=== PATIENT | female | born 1985 | race Caucasian/White ===

== ENCOUNTER 2016-05-30 14:22 | Inpatient (IN) | payer BC ==
[~2016-05-30] VITALS: Ht 167.6 cm; Wt 68.0 kg
[2016-05-30 14:22] VITALS: BP 142/83; PULSE 100; RESP 18; TEMP 97.2; O2SAT 98
[2016-05-30 14:57] LABS: BASOPHILS % (AUTO) 0.1 % (0.0-2.0); HEMATOCRIT 50.5 % (36-48); HEMOGLOBIN 16.5 g/dL (12.0-16.0); LYMPHOCYTES # (AUTO) 1.4 K/uL (1.0-5.5); LYMPHOCYTES % (AUTO) 8.5 % (20.5-51.5); MEAN CORPUSCULAR HEMOGLOBIN 31 pg (27-31); MEAN CORPUSCULAR HGB CONC 33 % (32-36); MEAN CORPUSCULAR VOLUME 96 fL (79.0-98.0); MONOCYTES # (AUTO) 0.6 K/uL (0.0-1.0); MONOCYTES % (AUTO) 3.9 % (1.7-9.3); NEUTROPHILS # (AUTO) 14.3 K/uL (1.8-7.7); NEUTROPHILS % (AUTO) 87.5 % (40.0-70.0); PLATELET COUNT (AUTO) 356 K/uL (130-430); RED BLOOD CELL COUNT(AUTO) 5.24 MIL/uL (4.2-6.2); RED CELL DISTRIBUTION WIDTH 11.9 % (9.0-15.0); WHITE BLOOD COUNT (AUTO) 16.3 K/uL (4.8-10.8)
[2016-05-30] MEDS ORDERED: NACL 0.9% 1,000 ML IV ONE (15:00)
[2016-05-30] MEDS ORDERED: ONDANSETRON HCL 4 MG/2 ML VIAL IVP ONE ×2 (15:00→16:00)
[2016-05-30 15:15] LABS: INR 1.1 (0.8-1.2); PROTHROMBIN TIME 11.8 SECS (9.5-12.5)
[2016-05-30] MEDS ORDERED: VANCOMYCIN HCL 1,000 MG in D5W 250 ML IV ONE (15:15)
[2016-05-30] MEDS ORDERED: PIPERACILLIN/TAZO 3.38 GM in D5W 50 ML IV ONE (15:15)
[2016-05-30 15:19] LABS: CALCIUM 9.3 mg/dL (8.4-11.0); CREATININE 1.1 mg/dL (0.55-1.30); POTASSIUM 4.2 mmol/L (3.5-5.1)
[2016-05-30 15:30] LABS: ALBUMIN 4.1 g/dL (3.4-4.8); TOTAL BILIRUBIN 1.5 mg/dL (0.0-1.0); TOTAL PROTEIN, SERUM 8.1 g/dL (6.4-8.3)
[2016-05-30] MEDS ORDERED: VANCOMYCIN HCL 1000 MG/VIAL IV ONE (15:31)
[2016-05-30] MEDS ORDERED: PIPERACILLIN/TAZOBACTAM 3.375 GM/VIAL (ZOSYN) IV ONE (15:32)
[2016-05-30] MEDS ORDERED: ACETAMINOPHEN 325 MG TABLET PO PRN (15:45)
[2016-05-30] MEDS ORDERED: MORPHINE 4 MG/ML INJ. SYRINGE IVP ONE (16:00)
[2016-05-30 17:24] VITALS: BP 117/77; PULSE 80; RESP 18; TEMP 98.9; O2SAT 97
[2016-05-30] MEDS: NACL 0.9% 1,000 ML IV SCH (18:07)
[2016-05-30 20:08] VITALS: BP 120/73; PULSE 85; RESP 16; TEMP 99; O2SAT 96
[2016-05-30] MEDS: LACTOBACILLUS RHAMNOSUS GG 1 CAP CAPSULE PO SCH (22:04)
[2016-05-30] MEDS: HYDROcodone/ACETAMIN 10-325 MG TAB PO PRN (22:05)
[2016-05-30] MEDS: ONDANSETRON HCL 4 MG/2 ML VIAL IVP PRN (22:07)
[2016-05-31] VITALS: BP 117/61; PULSE 74; RESP 18; TEMP 98.2; O2SAT 96
[2016-05-31] MEDS: PIPERACILLIN/TAZO 2.25G/DEX-IS 50 ML IV SCH ×5 (00:11→23:12)
[2016-05-31] MEDS: NACL 0.9% 1,000 ML IV SCH ×4 (00:14→22:08)
[2016-05-31 04:33] VITALS: BP 122/64; PULSE 76; RESP 18; TEMP 98.6; O2SAT 98
[2016-05-31 07:34] LABS: BASOPHILS % (AUTO) 0.2 % (0.0-2.0); EOSINOPHILS % (AUTO) 0.3 % (0.0-4.0); HEMATOCRIT 39.8 % (36-48); HEMOGLOBIN 13.8 g/dL (12.0-16.0); LYMPHOCYTES # (AUTO) 1.4 K/uL (1.0-5.5); MEAN CORPUSCULAR HEMOGLOBIN 33 pg (27-31); MEAN CORPUSCULAR HGB CONC 35 % (32-36); MEAN CORPUSCULAR VOLUME 97 fL (79.0-98.0); MONOCYTES # (AUTO) 0.7 K/uL (0.0-1.0); MONOCYTES % (AUTO) 6.1 % (1.7-9.3); NEUTROPHILS # (AUTO) 9.5 K/uL (1.8-7.7); NEUTROPHILS % (AUTO) 81.4 % (40.0-70.0); PLATELET COUNT (AUTO) 237 K/uL (130-430); RED BLOOD CELL COUNT(AUTO) 4.12 MIL/uL (4.2-6.2); RED CELL DISTRIBUTION WIDTH 12.2 % (9.0-15.0); WHITE BLOOD COUNT (AUTO) 11.6 K/uL (4.8-10.8)
[2016-05-31 07:53] LABS: ALBUMIN 3.1 g/dL (3.4-4.8); CREATININE 0.79 mg/dL (0.55-1.30); POTASSIUM 3.5 mmol/L (3.5-5.1); TOTAL BILIRUBIN 1.1 mg/dL (0.0-1.0); TOTAL PROTEIN, SERUM 6.3 g/dL (6.4-8.3)
[2016-05-31 08:32] VITALS: BP 119/64; PULSE 77; RESP 16; TEMP 97.9; O2SAT 94
[2016-05-31] MEDS: LACTOBACILLUS RHAMNOSUS GG 1 CAP CAPSULE PO SCH ×2 (09:00→22:08)
[2016-05-31 12:21] VITALS: BP 115/71; PULSE 75; RESP 16; TEMP 97.5; O2SAT 95
[2016-05-31 15:50] VITALS: BP 118/69; PULSE 95; RESP 18; TEMP 98.8; O2SAT 96
[2016-05-31] MEDS: ONDANSETRON HCL 4 MG/2 ML VIAL IVP PRN (18:06)
[2016-05-31] MEDS: HYDROmorphone 1 MG INJ. 1 MG/ML AMPUL IVP PRN ×2 (18:11→22:10)
[2016-05-31 20:21] VITALS: BP 115/66; PULSE 80; RESP 15; TEMP 99.4; O2SAT 96
[2016-06-01] MEDS: PIPERACILLIN/TAZO 2.25G/DEX-IS 50 ML IV SCH ×3 (05:45→17:34)
[2016-06-01 06:27] LABS: BILIRUBIN,URINE NEGATIVE (NEGATIVE); CLARITY/URINE SL CLOUDY (CLEAR); COLOR,URINE YELLOW (YELLOW); GLUCOSE,URINE NEGATIVE (NEGATIVE); KETONES,URINE 3+ (NEGATIVE); LEUKOCYTE ESTERASE ,URINE NEGATIVE (NEGATIVE); NITRITE, URINE NEGATIVE (NEGATIVE); PROTEIN URINE TRACE (NEGATIVE); UROBILINOGEN,URINE 0.2 (0.2-1.0)
[2016-06-01 06:40] LABS: BLOOD, URINE TRACE (NEGATIVE)
[2016-06-01 06:50] LABS: BACTERIA,URINE FEW /HPF (None Seen); MUCUS,URINE None Seen /LPF (None Seen); WBC,URINE 0-3 /HPF (0-3)
[2016-06-01 07:35] LABS: BASOPHILS % (AUTO) 0.4 % (0.0-2.0); EOSINOPHILS # (AUTO) 0.2 K/uL (0.0-0.4); EOSINOPHILS % (AUTO) 1.4 % (0.0-4.0); HEMATOCRIT 34.9 % (36-48); HEMOGLOBIN 11.9 g/dL (12.0-16.0); LYMPHOCYTES # (AUTO) 1.5 K/uL (1.0-5.5); LYMPHOCYTES % (AUTO) 13.6 % (20.5-51.5); MEAN CORPUSCULAR HEMOGLOBIN 33 pg (27-31); MEAN CORPUSCULAR HGB CONC 34 % (32-36); MEAN CORPUSCULAR VOLUME 97 fL (79.0-98.0); MONOCYTES # (AUTO) 0.7 K/uL (0.0-1.0); MONOCYTES % (AUTO) 6.6 % (1.7-9.3); NEUTROPHILS # (AUTO) 8.4 K/uL (1.8-7.7); PLATELET COUNT (AUTO) 187 K/uL (130-430); RED BLOOD CELL COUNT(AUTO) 3.59 MIL/uL (4.2-6.2); RED CELL DISTRIBUTION WIDTH 11.4 % (9.0-15.0); WHITE BLOOD COUNT (AUTO) 10.8 K/uL (4.8-10.8)
[2016-06-01 07:46] LABS: ALBUMIN 2.8 g/dL (3.4-4.8); CREATININE 0.72 mg/dL (0.55-1.30); POTASSIUM 3.6 mmol/L (3.5-5.1); TOTAL BILIRUBIN 0.9 mg/dL (0.0-1.0); TOTAL PROTEIN, SERUM 6.1 g/dL (6.4-8.3)
[2016-06-01 08:00] VITALS: BP 115/61; PULSE 98; RESP 15; TEMP 99.5; O2SAT 95
[2016-06-01] MEDS: NACL 0.9% 1,000 ML IV SCH ×2 (08:00→16:00)
[2016-06-01] MEDS: LACTOBACILLUS RHAMNOSUS GG 1 CAP CAPSULE PO SCH ×2 (08:41→21:43)
[2016-06-01] MEDS ORDERED: METOCLOPRAMIDE HCL 10 MG/2 ML VIAL IVP ONE (08:45)
[2016-06-01] MEDS ORDERED: fentaNYL CITRATE/PF 100 MCG/2 ML AMP IVP ONE (08:45)
[2016-06-01] MEDS ORDERED: BUPIVACAINE /EPINEPHRINE/PF 0.25% 30 ML VIAL INJ ONE (08:45)
[2016-06-01] MEDS ORDERED: SEVOFLURANE 15 MIN GAS INH ONE (08:45)
[2016-06-01] MEDS ORDERED: ROCURONIUM BROMIDE 10 MG/ML (ZEMURON) IV ONE (08:45)
[2016-06-01] MEDS ORDERED: LR 1,000 ML IV.SOLN IV ONE (08:45)
[2016-06-01] MEDS ORDERED: PROPOFOL 200MG/ 20ML VIAL (DIPRIVAN) IV ONE (08:45)
[2016-06-01] MEDS ORDERED: MIDAZOLAM HCL 5 MG/5 ML VIAL IVP ONE (08:45)
[2016-06-01] MEDS ORDERED: KETOROLAC TROMETHAMINE 30 MG VIAL IVP ONE (08:45)
[2016-06-01] MEDS ORDERED: NS 1000 ML BAG IV ONE (08:45)
[2016-06-01] MEDS ORDERED: fentaNYL CITRATE 250 MCG/5 ML AMP IV ONE (08:45)
[2016-06-01] MEDS ORDERED: DEXAMETHASONE SOD PHOSPHATE 4 MG/ML VIAL IVP ONE (08:45)
[2016-06-01] MEDS ORDERED: IOHEXOL 0 ML IV ONE (09:01)
[2016-06-01] MEDS ORDERED: LR 1,000 ML IV SCH (09:46)
[2016-06-01] MEDS ORDERED: HYDROmorphone 2 MG/ML VIAL IVP PRN ×2 (10:00)
[2016-06-01] MEDS ORDERED: HYDROmorphone 1 MG INJ. 1 MG/ML AMPUL IVP PRN (10:00)
[2016-06-01] MEDS ORDERED: MEPERIDINE HCL/PF 25 MG/ML DISP.SYRIN IVP PRN (10:00)
[2016-06-01 12:00] VITALS: BP 120/73; PULSE 95; RESP 16; TEMP 98; O2SAT 94
[2016-06-01] MEDS: HYDROcodone/ACETAMIN 10-325 MG TAB PO PRN (12:02)
[2016-06-01 16:00] VITALS: BP 128/69; PULSE 85; RESP 16; TEMP 97.5; O2SAT 97
[2016-06-01 16:11] VITALS: Ht 167.6 cm; Wt 68.0 kg
[2016-06-01 17:11] VITALS: BP 113/74; PULSE 82; RESP 16; TEMP 97.3; O2SAT 97
[2016-06-01 20:00] VITALS: BP 114/79; PULSE 71; RESP 16; TEMP 98.3; O2SAT 99
[2016-06-01 20:48] VITALS: BP 114/79; PULSE 71
[2016-06-02] MEDS: HYDROcodone/ACETAMIN 10-325 MG TAB PO PRN (00:12)
[2016-06-02] MEDS: PIPERACILLIN/TAZO 2.25G/DEX-IS 50 ML IV SCH ×2 (00:12→05:47)
[2016-06-02] MEDS: NACL 0.9% 1,000 ML IV SCH (00:15)
[2016-06-02 02:18] VITALS: BP 128/67; PULSE 66; RESP 16; TEMP 98; O2SAT 94
[2016-06-02 04:00] VITALS: BP 121/70; PULSE 66; RESP 18; TEMP 96.1; O2SAT 95
[2016-06-02 05:29] VITALS: BP 121/70; PULSE 66; RESP 18; TEMP 96.1; O2SAT 95
[2016-06-02 07:50] LABS: BASOPHILS % (AUTO) 0.1 % (0.0-2.0); EOSINOPHILS # (AUTO) 0.1 K/uL (0.0-0.4); EOSINOPHILS % (AUTO) 0.9 % (0.0-4.0); HEMATOCRIT 31.6 % (36-48); HEMOGLOBIN 10.7 g/dL (12.0-16.0); LYMPHOCYTES # (AUTO) 1.8 K/uL (1.0-5.5); LYMPHOCYTES % (AUTO) 19.6 % (20.5-51.5); MEAN CORPUSCULAR HEMOGLOBIN 33 pg (27-31); MEAN CORPUSCULAR HGB CONC 34 % (32-36); MEAN CORPUSCULAR VOLUME 96 fL (79.0-98.0); MONOCYTES # (AUTO) 0.7 K/uL (0.0-1.0); MONOCYTES % (AUTO) 7.4 % (1.7-9.3); NEUTROPHILS # (AUTO) 6.6 K/uL (1.8-7.7); PLATELET COUNT (AUTO) 191 K/uL (130-430); RED BLOOD CELL COUNT(AUTO) 3.29 MIL/uL (4.2-6.2); RED CELL DISTRIBUTION WIDTH 11.7 % (9.0-15.0); WHITE BLOOD COUNT (AUTO) 9.2 K/uL (4.8-10.8)
[2016-06-02] MEDS: LACTOBACILLUS RHAMNOSUS GG 1 CAP CAPSULE PO SCH (08:06)
[2016-06-02 08:10] VITALS: BP 119/75; PULSE 60; RESP 14; TEMP 97.4; O2SAT 68
[2016-06-02 08:22] LABS: ALBUMIN 2.5 g/dL (3.4-4.8); CALCIUM 8.4 mg/dL (8.4-11.0); CREATININE 0.64 mg/dL (0.55-1.30); POTASSIUM 3.8 mmol/L (3.5-5.1); TOTAL BILIRUBIN 0.4 mg/dL (0.0-1.0)
[2016-06-02] MEDS ORDERED: OXYCODONE/ACETAMINOPHEN 5-325 TABLET PO PRN (08:30)
[2016-06-02 10:27] VITALS: BP 119/73; PULSE 79; RESP 14; TEMP 96.8; O2SAT 94
== END 2016-06-02 11:15 | disposition home or self-care (01) | DRG 417 ==
LOC: SED 14:22 → SMU 15:37
PROVIDERS: ADMIT Internal Medicine; ATTEND Internal Medicine
PROC: 0FT44ZZ Resection of Gallbladder, Percutaneous Endoscopic Approach (ICD-10-PCS; principal; 2016-06-01 09:00)
DX: K80.10 Calculus of gallbladder with chronic cholecystitis without obstruction (principal); K85.10 Biliary acute pancreatitis without necrosis or infection; R65.10 Systemic inflammatory response syndrome (SIRS) of non-infectious origin without acute organ dysfunction; Z79.899 Other long term (current) drug therapy; D64.9 Anemia, unspecified
CPT/HCPCS: 36415; 74181; 76700-TC; 80053; 81000-TC; 83605; 83690-TC; 83735-TC; 84703; 85025; 85610-TC; 85730-TC; 86886; 86900; 86901; 87040-TC; 87081; 88304; 96365; 96366; 96367; 96375; 96376; 99285; C1727; J1100; J1170; J1885; J2250; J2270; J2405; J2543; J2704; J2765; J3010; J3370; J3490; J7030; J7060; J7120; Q9967